=== PATIENT | female | born 1995 | race Caucasian/White ===

== ENCOUNTER → 2023-07-28 | Outpatient (CLI) | payer OTHER ==
[2023-08-12 10:11] LABS: HPV GENOTYPE 16 Not Detected; HPV GENOTYPE 18 Not Detected; HPV HIGH RISK Not Detected; HPV SOURCE Cervical
== END ==
LOC: LAB SHORT 17:38 → LAB 17:38
PROVIDERS: Family Medicine
DX: Z01.419 Encounter for gynecological examination (general) (routine) without abnormal findings (principal)
CPT/HCPCS: 87624; G0123